=== PATIENT | female | born 1965 | race Two or more races ===

== ENCOUNTER 2017-01-10 16:34 | Emergency (ER) | payer SELFPAY ==
[~2017-01-10] VITALS: Ht 160 cm; Wt 81.1 kg
[2017-01-10 16:37] VITALS: BP 128/82
[2017-01-10] MEDS ORDERED: IBUPROFEN 200 MG TABLET ONE (18:25)
[2017-01-10] MEDS ORDERED: IBUPROFEN 200 MG TABLET PO ONE (18:30)
== END 2017-01-10 18:39 | disposition home or self-care (01) ==
LOC: ED 18:33
DX: M25.532 Pain in left wrist (principal)
CPT/HCPCS: 29125; 99284

== ENCOUNTER 2017-01-13 15:16 | Emergency (ER) | payer SELFPAY ==
[~2017-01-13] VITALS: Ht 154.9 cm; Wt 83.4 kg
[2017-01-13 15:17] VITALS: BP 109/70
== END 2017-01-13 15:26 | disposition left against medical advice (07) ==
LOC: ED 15:23
DX: Z76.1 Encounter for health supervision and care of foundling (principal); Z53.21 Procedure and treatment not carried out due to patient leaving prior to being seen by health care provider

== ENCOUNTER 2017-10-24 14:55 | Emergency (ER) | payer OTHER ==
[~2017-10-24] VITALS: Ht 167.6 cm; Wt 80.3 kg
[2017-10-24 16:03] LABS: BASOPHILS # (AUTO) 0.03 x10^3/uL (0-0.1); BASOPHILS % (AUTO) 0 % (0-1); EOSINOPHILS # (AUTO) 0.06 x10^3/uL (0-0.4); EOSINOPHILS % (AUTO) 1 % (1-7); LYMPHOCYTES # (AUTO) 1.86 x10^3/uL (1-3.4); LYMPHOCYTES % (AUTO) 26 % (22-44); MD NO; MEAN CORPUSCULAR HEMOGLOBIN 28.9 pg (27.0-34.8); MEAN CORPUSCULAR VOLUME 87.6 fL (80-100); MEAN PLATELET VOLUME 8.8 fL (7.4-10.4); MONOCYTES # (AUTO) 0.44 x10^3/uL (0.2-0.8); MONOCYTES % (AUTO) 6 % (2-9); NEUTROPHILS # (AUTO) 4.89 x10^3/uL (1.8-6.8); NEUTROPHILS % (AUTO) 67 % (42-75); PLATELET COUNT 235 x10^3/uL (130-400); RED BLOOD COUNT 4.66 x10^6/uL (3.82-5.3); RED CELL DISTRIBUTION WIDTH 12.1 % (9.6-15.2)
[2017-10-24 16:14] LABS: ALBUMIN 3.9 g/dL (3.4-5.0); ANION GAP 8 mmol/L (5-15); CALCIUM 8.8 mg/dL (8.5-10.1); CHLORIDE 105 mmol/L (98-107)
[2017-10-24 16:17] LABS: HCG UR SG 1.007 (1.003-1.030); MICROSCOPIC NOT IND
[2017-10-24 16:18] LABS: ALANINE AMINOTRANSFERASE 27 U/L (12-78); ALKALINE PHOSPHATASE 98 U/L (45-117); BILIRUBIN,TOTAL 0.4 mg/dL (0.2-1.0); CREATININE 0.65 mg/dL (0.55-1.02); TOTAL PROTEIN 7.8 g/dL (6.4-8.2)
[2017-10-24 16:25] LABS: CULTURE INDICATED? NO
[2017-10-24] MEDS ORDERED: OMNIPAQUE 350 MG/ML, 100ML BOTTLE ONE (17:06)
[2017-10-24 18:00] VITALS: BP 95/74
== END 2017-10-24 18:33 | disposition home or self-care (01) ==
LOC: ED 17:15
DX: G89.29 Other chronic pain (principal); R10.11 Right upper quadrant pain; Z90.49 Acquired absence of other specified parts of digestive tract
CPT/HCPCS: 36415; 74177; 80053; 81003; 81025; 83690; 85025; 99285; Q9967